=== PATIENT | female | born 1985 | race Caucasian/White ===

== ENCOUNTER 2017-07-06 22:46 | Emergency (ER) | payer SELFPAY, BC | END 2017-07-06 23:55 | disposition left against medical advice (07) | LOC: FTE 22:46 | DX: Z53.21 Procedure and treatment not carried out due to patient leaving prior to being seen by health care provider (principal) ==

== ENCOUNTER 2017-07-07 10:19 | Emergency (ER) | payer BC ==
[2017-07-07] MEDS: ACETAMINOPHEN 500 MG TAB PO (11:25)
[2017-07-07] MEDS: ONDANSETRON 4 MG INJ IV (11:26)
[2017-07-07 11:30] LABS: ADD MAN DIFF? NO
[2017-07-07] MEDS: SOD CHLORIDE 0.9% 1,000 ML IV (11:30)
[2017-07-07 11:34] LABS: WHITE BLOOD COUNT 6.8 10^3/ul (4.8-10.8)
[2017-07-07 11:34] LABS: ABNORMAL IP MESSAGE 1; BASOPHILS % 0.1 % (0.0-2.0); EOSINOPHILS % 0.3 % (0.0-7.0); HEMOGLOBIN 13.8 g/dl (12.0-16.0); LYMPHOCYTES # 0.5 10^3/ul (0.8-2.9); LYMPHOCYTES % 7.5 % (15.0-51.0); MEAN CORPUSCULAR HEMOGLOBIN 30.1 pg (29.0-33.0); MEAN CORPUSCULAR HGB CONC 33.7 g/dl (32.0-37.0); MEAN CORPUSCULAR VOLUME 89.3 fl (82.0-101.0); MEAN PLATELET VOLUME 10.5 fl (7.4-10.4); MONOCYTE # 0.6 10^3/ul (0.3-0.9); MONOCYTES % 8.4 % (0.0-11.0); NEUTROPHIL # 5.6 10^3/ul (1.6-7.5); NEUTROPHILS % 83.3 % (39.0-77.0); PLATELET COUNT 220 10^3/UL (140-415); RED BLOOD COUNT 4.59 10^6/ul (4.20-5.40); RED CELL DISTRIBUTION WIDTH 12.2 % (11.5-14.5)
[2017-07-07 11:38] LABS: POSITIVE DIFF @See below
[2017-07-07 11:57] LABS: ADD UMIC YES; UR ASCORBIC ACID 40 mg/dL (NEGATIVE); UR BILIRUBIN (Dip) NEGATIVE (NEGATIVE); UR BLOOD (Dip) 2+ mg/dL (NEGATIVE); UR CLARITY SLIGHTLY CLOUDY (CLEAR); UR COLOR YELLOW (YELLOW); UR GLUCOSE (Dip) NEGATIVE (NEGATIVE); UR KETONES (Dip) 1+ mg/dL (NEGATIVE); UR LEUKOCYTE ESTERASE (Dip) 3+ Leu/ul (NEGATIVE); UR NITRITE (Dip) NEGATIVE (NEGATIVE); UR RBC 18 /HPF (0-5); UR SPECIFIC GRAVITY (Dip) 1.023 (1.003-1.030); UR SQUAMOUS EPITHELIAL CELL MODERATE /HPF (FEW); UR TOTAL PROTEIN (Dip) NEGATIVE (NEGATIVE); UR UROBILINOGEN (Dip) NEGATIVE (NEGATIVE); UR WBC 20 /HPF (0-5)
[2017-07-07 12:07] LABS: ALANINE AMINOTRANSFERASE 45 IU/L (13-69); ALBUMIN 4.4 g/dl (3.3-4.9); ALBUMIN/GLOBULIN RATIO 0.97; ALKALINE PHOSPHATASE 126 IU/L (42-121); AMYLASE 79 U/L (11-123); ANION GAP 15 (8-16); ASPARTATE AMINO TRANSFERASE 27 IU/L (15-46); BILIRUBIN,INDIRECT 0.3 mg/dl (0-1.1); BILIRUBIN,TOTAL 0.3 mg/dl (0.2-1.3); BLOOD UREA NITROGEN 8 mg/dl (7-20); CALCIUM 8.8 mg/dl (8.4-10.2); CARBON DIOXIDE 27 mmol/L (21-31); CHLORIDE 101 mmol/L (97-110); CREATININE 0.64 mg/dl (0.44-1.00); GLUCOSE 110 mg/dl (70-220); LIPASE 77 U/L (23-300); POTASSIUM 3.4 mmol/L (3.5-5.1); SODIUM 140 mmol/L (135-144); TOTAL PROTEIN 8.9 g/dl (6.1-8.1)
[2017-07-07] MEDS: IOHEXOL 300MG/ML 150 ML BTL (12:43)
[2017-07-07] MEDS: SOD CHLORIDE 0.9% 100 ML (12:43)
== END 2017-07-07 15:34 | disposition home or self-care (01) ==
LOC: FTE 10:19
DX: K52.9 Noninfective gastroenteritis and colitis, unspecified (principal); N39.0 Urinary tract infection, site not specified
CPT/HCPCS: 36415; 74177; 80053; 81001; 81025; 82150; 83690; 85025; 87086; 96374; 99285-25

== ENCOUNTER 2017-11-22 08:36 | Emergency (ER) | payer BC ==
[2017-11-22] MEDS: KETOROLAC 60 MG INJ IM (09:08)
== END 2017-11-22 09:46 | disposition home or self-care (01) ==
LOC: FTE 08:36
DX: M77.9 Enthesopathy, unspecified (principal)
CPT/HCPCS: 73060; 73060-RT; 81025; 96372; 99284-25

== ENCOUNTER 2018-03-19 23:31 | Emergency (ER) | payer BC ==
[2018-03-20] MEDS: KETOROLAC 30 MG INJ IM (00:17)
== END 2018-03-20 00:41 | disposition home or self-care (01) ==
LOC: FTE 03-20 00:41
DX: M77.9 Enthesopathy, unspecified (principal)
CPT/HCPCS: 81025; 96372; 99284-25

== ENCOUNTER 2018-05-26 07:37 | Emergency (ER) | payer BC ==
[2018-05-26] MEDS: FAMOTIDINE 20 MG INJ IV (09:53)
[2018-05-26] MEDS: morphine 2 MG INJ IV (09:53)
[2018-05-26] MEDS: ONDANSETRON 4 MG INJ IV (09:53)
[2018-05-26] MEDS: LACTATED RINGER'S 1,000 ML IV (09:54)
[2018-05-26 10:00] LABS: WHITE BLOOD COUNT 13.8 10^3/ul (4.8-10.8)
[2018-05-26 10:00] LABS: ADD MAN DIFF? NO; BASOPHILS % 0.2 % (0.0-2.0); LYMPHOCYTES % 7.3 % (15.0-51.0); MEAN CORPUSCULAR HEMOGLOBIN 29.6 pg (29.0-33.0); MEAN CORPUSCULAR HGB CONC 33.3 g/dl (32.0-37.0); MEAN CORPUSCULAR VOLUME 88.8 fl (82.0-101.0); MEAN PLATELET VOLUME 10.2 fl (7.4-10.4); MONOCYTE # 0.4 10^3/ul (0.3-0.9); MONOCYTES % 2.9 % (0.0-11.0); NEUTROPHIL # 12.3 10^3/ul (1.6-7.5); NEUTROPHILS % 89.2 % (39.0-77.0); PLATELET COUNT 262 10^3/UL (140-415); RED BLOOD COUNT 4.73 10^6/ul (4.20-5.40); RED CELL DISTRIBUTION WIDTH 11.8 % (11.5-14.5)
[2018-05-26 10:01] LABS: ADD UMIC YES; UR ASCORBIC ACID 40 mg/dL (NEGATIVE); UR BACTERIA FEW /HPF (NONE SEEN); UR BILIRUBIN (Dip) NEGATIVE (NEGATIVE); UR BLOOD (Dip) 2+ mg/dL (NEGATIVE); UR CLARITY SLIGHTLY CLOUDY (CLEAR); UR COLOR YELLOW (YELLOW); UR GLUCOSE (Dip) 1+ mg/dL (NEGATIVE); UR KETONES (Dip) TRACE mg/dL (NEGATIVE); UR LEUKOCYTE ESTERASE (Dip) 3+ Leu/ul (NEGATIVE); UR MUCUS FEW /HPF (NONE SEEN); UR NITRITE (Dip) NEGATIVE (NEGATIVE); UR RBC 29 /HPF (0-5); UR SPECIFIC GRAVITY (Dip) 1.026 (1.003-1.030); UR SQUAMOUS EPITHELIAL CELL FEW /HPF (FEW); UR TOTAL PROTEIN (Dip) NEGATIVE (NEGATIVE); UR UROBILINOGEN (Dip) NEGATIVE (NEGATIVE); UR WBC 31 /HPF (0-5)
[2018-05-26 10:20] LABS: ALANINE AMINOTRANSFERASE 33 IU/L (13-69); ALBUMIN 4.6 g/dl (3.3-4.9); ALBUMIN/GLOBULIN RATIO 1.09; ALKALINE PHOSPHATASE 127 IU/L (42-121); ANION GAP 13 (5-13); ASPARTATE AMINO TRANSFERASE 31 IU/L (15-46); BILIRUBIN,INDIRECT 0.3 mg/dl (0-1.1); BILIRUBIN,TOTAL 0.3 mg/dl (0.2-1.3); BLOOD UREA NITROGEN 9 mg/dl (7-20); CALCIUM 9.3 mg/dl (8.4-10.2); CARBON DIOXIDE 28 mmol/L (21-31); CHLORIDE 100 mmol/L (97-110); CREATININE 0.46 mg/dl (0.44-1.00); Estimated GFR > 60 mL/min (>60); GLUCOSE 152 mg/dl (70-220); LIPASE 99 U/L (23-300); SODIUM 141 mmol/L (135-144); TOTAL PROTEIN 8.8 g/dl (6.1-8.1)
[2018-05-26] MEDS: CEFTRIAXONE 1 GM/50 ML (PMX) 50 ML IVPB (10:23)
[2018-05-26] MEDS: KETOROLAC 30 MG INJ IV (11:08)
== END 2018-05-26 11:50 | disposition home or self-care (01) ==
LOC: FTE 07:37
DX: N39.0 Urinary tract infection, site not specified (principal)
CPT/HCPCS: 36415; 74176; 76705; 80053; 81001; 81025; 83690; 85025; 87086; 96374; 96375; 99285-25